=== PATIENT | female | born 1955 | race Caucasian/White ===

== ENCOUNTER 2022-04-13 11:59 | Observation (INO) ==
[2022-04-13] MEDS ORDERED: Naloxone 0.4 MG/ML INJ IVP PRN (14:38)
[2022-04-13] MEDS ORDERED: Acetaminophen 325 MG TABLET PO PRN (14:38)
[2022-04-13] MEDS ORDERED: Ondansetron 4 MG/2 ML VIAL IVP PRN (14:38)
[2022-04-13] MEDS ORDERED: Potassium Chloride Elixir 20 MEQ/15 ML UDC PO ONE (14:40)
[2022-04-13] MEDS: 0.9 % Sodium Chloride 1,000 ML IVC SCH (15:41)
[2022-04-13] MEDS: *HR* Heparin 5,000 UNIT/ML VIAL SQ SCH (16:34)
[2022-04-13] MEDS: *HR* HYDROcodone/Acet 5/325 mg TABLET PO PRN (21:29)
[2022-04-13] MEDS: Gabapentin 300 MG CAPSULE PO SCH (21:29)
[2022-04-13] MEDS: diazePAM 5 MG TABLET PO PRN (22:32)
[2022-04-13] MEDS: QUEtiapine Fumarate 300 MG TABLET PO SCH (22:32)
[2022-04-14] MEDS: 0.9 % Sodium Chloride 1,000 ML IVC SCH (01:55)
[2022-04-14 02:57] LABS: Basophils % 0.1 %; Eosinophils # 0.3 K/mcL (0.0-0.6); Hemoglobin 11.8 g/dL (11.5-15.4); Immature Granulocytes % 0.7 % (0-4); Lymphocytes # 2.4 K/mcL (0.6-4.6); Lymphocytes % 31.8 %; Mean Corpuscular HGB Conc 32.8 g/dL (31.6-35.5); Mean Corpuscular Hemoglobin 33.1 pg (28.0-33.3); Mean Corpuscular Volume 100.8 fL (83.0-100.0); Mean Platelet Volume 10.1 fL (9.4-12.4); Monocytes # 0.7 K/mcL (0.0-1.3); Monocytes % 9.2 %; Neutrophils # 4.1 K/mcL (1.6-8.9); Platelet Count 203 K/mcL (140-400); Red Blood Count 3.57 M/mcL (3.82-4.97); Red Cell Distribution Width 13.3 % (11.5-14.5); Segmented Neutrophils % 54.2 %; White Blood Count 7.5 K/mcL (4.3-11.1)
[2022-04-14 03:14] LABS: Calcium 8.6 mg/dL (8.6-10.3); Potassium 3.1 mEq/L (3.5-5.1)
[2022-04-14] MEDS: *HR* Heparin 5,000 UNIT/ML VIAL SQ SCH ×2 (06:31→17:05)
[2022-04-14 09:08] LABS: Bilirubin,Urine Negative (Negative); Blood,Urine Negative (Negative); Clarity,Urine Clear (Clear); Color,Urine Light-Yellow (Yellow); Glucose,Urine (UA) Normal (Normal); Ketones,Urine Negative (Negative); Leukocyte Esterase,Urine Negative (Negative); Nitrite,Urine Negative (Negative); PH,Urine 6.5 pH Units (5.0-8.0); Protein,Urine Negative (Neg-Trace); Specific Gravity,Urine 1.011 (1.010-1.025); Urobilinogen,Urine Normal (Normal)
[2022-04-14] MEDS: Cyanocobalamin (B-12) 1,000 MCG TABLET PO SCH (09:39)
[2022-04-14] MEDS: QUEtiapine Fumarate 300 MG TABLET PO SCH (09:39)
[2022-04-14] MEDS: Potassium Chloride Elixir 20 MEQ/15 ML UDC PO SCH ×2 (09:39→20:33)
[2022-04-14] MEDS: Ascorbic Acid 500 MG TABLET PO SCH (09:39)
[2022-04-14] MEDS: Multivit/Ca/Min/Fe/FA 1 TAB TABLET PO SCH (09:40)
[2022-04-14] MEDS: rOPINIRole 0.25 MG TABLET PO SCH (09:40)
[2022-04-14] MEDS: Gabapentin 300 MG CAPSULE PO SCH ×2 (09:40→20:33)
[2022-04-14] MEDS: Magnesium Oxide 400 MG TABLET PO SCH (09:40)
[2022-04-14] MEDS: Cholecalciferol (D-3) 1,000 UNIT (25MCG) TABLET PO SCH (09:40)
[2022-04-14] MEDS: *HR* HYDROcodone/Acet 5/325 mg TABLET PO PRN (20:42)
[2022-04-14] MEDS: diazePAM 5 MG TABLET PO PRN (20:42)
[2022-04-15] MEDS: *HR* Heparin 5,000 UNIT/ML VIAL SQ SCH ×2 (05:37→18:08)
[2022-04-15] MEDS: Cyanocobalamin (B-12) 1,000 MCG TABLET PO SCH (07:38)
[2022-04-15] MEDS: Gabapentin 300 MG CAPSULE PO SCH ×2 (07:38→20:46)
[2022-04-15] MEDS: Magnesium Oxide 400 MG TABLET PO SCH (07:38)
[2022-04-15] MEDS: Ascorbic Acid 500 MG TABLET PO SCH (07:38)
[2022-04-15] MEDS: Cholecalciferol (D-3) 1,000 UNIT (25MCG) TABLET PO SCH (07:38)
[2022-04-15] MEDS: *HR* OxyCODONE Immed Rel 5 MG TABLET PO PRN (07:38)
[2022-04-15] MEDS: Multivit/Ca/Min/Fe/FA 1 TAB TABLET PO SCH (07:38)
[2022-04-15] MEDS: rOPINIRole 0.25 MG TABLET PO SCH ×2 (07:41→20:46)
[2022-04-15] MEDS: QUEtiapine Fumarate 300 MG TABLET PO SCH ×2 (07:41→20:46)
[2022-04-15 09:30] LABS: Hematocrit 39.9 % (35.3-44.9); Hemoglobin 12.9 g/dL (11.5-15.4); Mean Corpuscular HGB Conc 32.3 g/dL (31.6-35.5); Mean Corpuscular Hemoglobin 33.2 pg (28.0-33.3); Mean Corpuscular Volume 102.8 fL (83.0-100.0); Mean Platelet Volume 9.9 fL (9.4-12.4); Platelet Count 213 K/mcL (140-400); Red Blood Count 3.88 M/mcL (3.82-4.97); Red Cell Distribution Width 13.5 % (11.5-14.5); White Blood Count 9.1 K/mcL (4.3-11.1)
[2022-04-15 09:51] LABS: Calcium 8.9 mg/dL (8.6-10.3); Potassium 3.6 mEq/L (3.5-5.1)
[2022-04-15] MEDS: *HR* HYDROcodone/Acet 5/325 mg TABLET PO PRN (18:08)
[2022-04-15] MEDS: diazePAM 5 MG TABLET PO PRN (20:46)
[2022-04-16 01:57] LABS: Calcium 8.4 mg/dL (8.6-10.3); Potassium 3.5 mEq/L (3.5-5.1)
[2022-04-16] MEDS: *HR* Heparin 5,000 UNIT/ML VIAL SQ SCH ×2 (05:52→16:40)
[2022-04-16] MEDS: *HR* HYDROcodone/Acet 5/325 mg TABLET PO PRN ×3 (07:44→19:53)
[2022-04-16] MEDS: Ascorbic Acid 500 MG TABLET PO SCH (07:44)
[2022-04-16] MEDS: Magnesium Oxide 400 MG TABLET PO SCH (07:44)
[2022-04-16] MEDS: Cholecalciferol (D-3) 1,000 UNIT (25MCG) TABLET PO SCH (07:44)
[2022-04-16] MEDS: Cyanocobalamin (B-12) 1,000 MCG TABLET PO SCH (07:45)
[2022-04-16] MEDS: Multivit/Ca/Min/Fe/FA 1 TAB TABLET PO SCH (07:45)
[2022-04-16] MEDS: Gabapentin 300 MG CAPSULE PO SCH ×2 (07:45→19:51)
[2022-04-16] MEDS ORDERED: Potassium Chloride Elixir 20 MEQ/15 ML UDC PO ONE (08:43)
[2022-04-16] MEDS: Bumetanide 1 MG TABLET PO SCH (08:56)
[2022-04-16] MEDS: QUEtiapine Fumarate 300 MG TABLET PO SCH (19:51)
[2022-04-16] MEDS: rOPINIRole 0.25 MG TABLET PO SCH (19:51)
[2022-04-17 02:57] LABS: Potassium 3.6 mEq/L (3.5-5.1)
[2022-04-17] MEDS: *HR* HYDROcodone/Acet 5/325 mg TABLET PO PRN ×3 (06:00→20:46)
[2022-04-17] MEDS: *HR* Heparin 5,000 UNIT/ML VIAL SQ SCH ×2 (06:00→17:33)
[2022-04-17] MEDS: Gabapentin 300 MG CAPSULE PO SCH ×2 (07:52→20:46)
[2022-04-17] MEDS: Ascorbic Acid 500 MG TABLET PO SCH (07:52)
[2022-04-17] MEDS: Magnesium Oxide 400 MG TABLET PO SCH (07:52)
[2022-04-17] MEDS: Cyanocobalamin (B-12) 1,000 MCG TABLET PO SCH (07:52)
[2022-04-17] MEDS: Cholecalciferol (D-3) 1,000 UNIT (25MCG) TABLET PO SCH (07:52)
[2022-04-17] MEDS: Bumetanide 1 MG TABLET PO SCH (07:52)
[2022-04-17] MEDS: Multivit/Ca/Min/Fe/FA 1 TAB TABLET PO SCH (07:52)
[2022-04-17] MEDS: rOPINIRole 0.25 MG TABLET PO SCH (20:45)
[2022-04-17] MEDS: QUEtiapine Fumarate 300 MG TABLET PO SCH (20:47)
[2022-04-18] MEDS: *HR* Heparin 5,000 UNIT/ML VIAL SQ SCH (06:08)
[2022-04-18] MEDS: Gabapentin 300 MG CAPSULE PO SCH (09:01)
[2022-04-18] MEDS: Multivit/Ca/Min/Fe/FA 1 TAB TABLET PO SCH (09:01)
[2022-04-18] MEDS: Cholecalciferol (D-3) 1,000 UNIT (25MCG) TABLET PO SCH (09:01)
[2022-04-18] MEDS: Magnesium Oxide 400 MG TABLET PO SCH (09:01)
[2022-04-18] MEDS: Cyanocobalamin (B-12) 1,000 MCG TABLET PO SCH (09:01)
[2022-04-18] MEDS: Ascorbic Acid 500 MG TABLET PO SCH (09:01)
[2022-04-18] MEDS: Bumetanide 1 MG TABLET PO SCH (09:01)
[2022-04-18] MEDS ORDERED: Pfizer Covid-19 Vaccine 30MCG/0.3ML IM ONE (10:18)
[2022-04-18] MEDS: *HR* HYDROcodone/Acet 5/325 mg TABLET PO PRN (10:41)
[2022-04-18] MEDS ORDERED: Nystatin POWDER 30 GM BOTTLE TP SCH (11:30)
[2022-04-18 14:40] VITALS: BP 126/77; PULSE 77; TEMP 98.6; O2SAT 94
[2022-04-18] MEDS: *HR* OxyCODONE Immed Rel 5 MG TABLET PO PRN (15:10)
== END 2022-04-18 17:10 ==
LOC: 3BNU → SUATTDRO 13:51
PROVIDERS: ADMIT Internal Medicine; ATTEND Internal Medicine